=== PATIENT | female | born 1960 | race Caucasian/White ===

== ENCOUNTER → 2016-12-20 | Outpatient (CLI) | payer OTHER ==
[2014-08-26 15:00] VITALS: BP 120/82
[~2016-12-20] MED LIST: ASPI-612 PO; CHOL100013 PO; FENO48TA16 PO; GLUC100018 PO; LEVO50TA PO; LEXAPRO10 MG PO; METF100010 PO; METF500T4 PO; METO25TA4 PO; NITR0.4T22 SL; OMEG10005 PO; PANT40TA3 PO; RED600CA2 PO
--- NOTE | 2016-12-21 10:03 | RAD ---
DATE: 12/20/16. EXAM: DIGITAL SCREEN BILAT W/CAD HISTORY: Routine screening COMPARISON: 10/13/15 This study was interpreted with the benefit of Computerized Aided Detection (CAD ). TECHNIQUE: Routine digital CC and MLO views of both breasts are obtained FINDINGS: Breast Density: B No suspicious clustered microcalcifications, focal asymmetric densities or masses are seen. Stable benign calcifications seen in the left breast. Skin and nipples are intact. IMPRESSION: Benign findings BI-RADS CATEGORY:BI-RADS 1 (NEGATIVE EXAM) RECOMMENDATION: ROUTINE SCREENING MAMMOGRAPHY, PER ACR GUIDELINES. RECOMMENDED FOLLOW-UP: One year PQRS compliance statement: Patient information was entered into a reminder system with a target due date for the next mammogram. Mammography is a sensitive method for finding small breast cancers, but it does not detect them all and is not a substitute for careful clinical examination. A negative mammogram does not negate a clinically suspicious finding and should not result in delay in biopsying a clinically suspicious abnormality. "Our facility is accredited by the [employer] Mammography Program." DEXD
== END | disposition home or self-care (01) ==
LOC: MAMMO 07:59
PROVIDERS: ATTEND Family Medicine
DX: Z12.31 Encounter for screening mammogram for malignant neoplasm of breast (principal)
CPT/HCPCS: G0202; 77067

== ENCOUNTER → 2017-05-25 | Outpatient (CLI) | payer OTHER ==
[2017-05-25 14:29] LABS: ALBUMIN 4.3 g/dL (3.4-5.0); ALBUMIN/GLOBULIN RATIO 1.1 (1.0-1.7); ALK PHOS 74 U/L (46-116); ALT (SGPT) 78 U/L (14-59); ANION GAP 11 (6-14); AST (SGOT) 62 U/L (15-37); BLOOD UREA NITROGEN 16 mg/dL (7-20); BUN/CREATININE RATIO 20 (6-20); CALCIUM 9.7 mg/dL (8.5-10.1); CARBON DIOXIDE 26 mmol/L (21-32); CHLORIDE 99 mmol/L (98-107); CHOLESTEROL 177 mg/dL (0-200); CREATININE 0.8 mg/dL (0.6-1.0); GFR 73.7; GLUCOSE 146 mg/dL (70-99); HDLC 39 mg/dL (40-60); LDLC 105 mg/dL (0-100); NON-HDL CHOLESTEROL 138 mg/dL (0-129); POTASSIUM 4.3 mmol/L (3.5-5.1); SODIUM 136 mmol/L (136-145); TOTAL BILIRUBIN 0.6 mg/dL (0.2-1.0); TOTAL PROTEIN 8.3 g/dL (6.4-8.2); TRIGLYCERIDES 167 mg/dL (0-150); VLDLC 33 mg/dL (0-40)
[2017-05-25 14:32] LABS: CHOLESTEROL/HDL RATIO 4.5
[2017-05-26 00:11] LABS: CREAT RD UR 147.3 mg/dL (Not Estab.); MICRO CREAT RATIO <8.1 mg/g creat (0.0-30.0); MICROALB RD UR <12.0 ug/mL (Not Estab.)
[2017-05-26 12:12] LABS: HEMOGLOBIN A1C 7.8 % (4.8-5.6)
== END | disposition home or self-care (01) ==
LOC: LAB 13:21
DX: E11.65 Type 2 diabetes mellitus with hyperglycemia (principal); E03.9 Hypothyroidism, unspecified; E78.00 Pure hypercholesterolemia, unspecified
CPT/HCPCS: 36415; 80053; 80061; 82043; 82570; 83036; 84443

== ENCOUNTER → 2017-09-21 | Outpatient (CLI) | payer OTHER | END | disposition home or self-care (01) | LOC: EKG 16:19 | DX: Z01.818 Encounter for other preprocedural examination (principal); I10 Essential (primary) hypertension; R94.31 Abnormal electrocardiogram [ECG] [EKG] | CPT/HCPCS: 93005 ==

== ENCOUNTER → 2018-07-04 | Outpatient (CLI) | payer OTHER ==
[2014-08-26 15:00] VITALS: BP 120/82
[~2018-07-04] MED LIST changes: +METF500T16 PO; -METF500T4 PO
[2018-07-04 07:59] LABS: BASO # 0.1 x10^3/uL (0.0-0.2); BASO % 1 % (0-3); EOS # 0.2 x10^3/uL (0.0-0.7); EOS % 2 % (0-3); HEMATOCRIT 39.7 % (36.0-47.0); HEMOGLOBIN 12.8 g/dL (12.0-15.5); LYMPH # 3.2 x10^3/uL (1.0-4.8); LYMPH % 35 % (24-48); MEAN CORPUSCULAR HEMOGLOBIN 26 pg (25-35); MEAN CORPUSCULAR HGB CONC 32 g/dL (31-37); MEAN CORPUSCULAR VOLUME 79 fL (79-100); MONO # 0.8 x10^3/uL (0.0-1.1); MONO % 8 % (0-9); NEUT # 4.8 x10^3uL (1.8-7.7); NEUT % 53 % (31-73); PLATELET COUNT 294 x10^3/uL (140-400); RED BLOOD COUNT 4.99 x10^6/uL (3.50-5.40); RED CELL DISTRIBUTION WIDTH 14.2 % (11.5-14.5); WHITE BLOOD COUNT 9.1 x10^3/uL (4.0-11.0)
[2018-07-04 08:30] LABS: ALBUMIN 4.2 g/dL (3.4-5.0); CALCIUM 10.2 mg/dL (8.5-10.1); CREATININE 0.8 mg/dL (0.6-1.0); GFR 73.4; POTASSIUM 4.3 mmol/L (3.5-5.1); TOTAL BILIRUBIN 0.4 mg/dL (0.2-1.0); TOTAL PROTEIN 8.4 g/dL (6.4-8.2)
[2018-07-04 08:33] LABS: CHOLESTEROL/HDL RATIO 3.6
[2018-07-04 11:27] LABS: CREAT RD UR 40.9 mg/dL (Not Estab.); MICRO CREAT RATIO <7.3 mg/g creat (0.0-30.0); MICROALB RD UR <3.0 ug/mL (Not Estab.)
[2018-07-04 23:11] LABS: HEMOGLOBIN A1C 6.9 % (4.8-5.6)
== END | disposition home or self-care (01) ==
LOC: LAB 07:25
PROVIDERS: ATTEND Family Medicine
DX: I10 Essential (primary) hypertension (principal); E11.65 Type 2 diabetes mellitus with hyperglycemia; E03.9 Hypothyroidism, unspecified; E78.00 Pure hypercholesterolemia, unspecified
CPT/HCPCS: 36415; 80053; 80061; 82043; 82570; 83036; 84443; 85025

== ENCOUNTER → 2019-01-30 | Outpatient (CLI) | payer OTHER ==
[2014-08-26 15:00] VITALS: BP 120/82
[~2019-01-30] MED LIST changes: -PANT40TA3 PO; +PANT40TA77 PO
--- NOTE | 2019-02-03 11:24 | RAD ---
MR#: [id number] Date of Study: 01/30/2019 Ordering Physician: ALEXANDRIA ECHEVARRIA, Referring Physician: ALEXANDRIA ECHEVARRIA, Tech: ISIS Antunez, RDMS, RVT APPROVED REPORT Patient Location : OUT-PATIENT Indications Lower Extremity Pain : SPIDER VEINS, HX OF LEFT GSV TX PER PATIENT Risk Factors [place] scale images of the SFJ, GSV and LSV do not show any obvious evidence of thrombus. On spectral images, there is reflux localized only to the level of the SFJ and into the right AASV. T here is no clear evidence of reflux in the GSV or LSV bilaterally. There are perforators noted in bot h calves without any evidence of reflux. There are multiple spider veins noted on the superficial opal face of the skin per technologist report. Past History Compression Stockings : YesDiabetes Medications Aspirin Critical Notification Critical Value: No <Conclusion> 1. 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 Although clinically it appe ars that there is chronic LE reflux. Signed by : Alexandria Echevarria, Electronically Approved : 01/31/2019 08:38:36
== END | disposition home or self-care (01) ==
LOC: KCIC US 13:09
PROVIDERS: ATTEND Internal Medicine Cardiovascular Disease
DX: I87.2 Venous insufficiency (chronic) (peripheral) (principal); E11.9 Type 2 diabetes mellitus without complications
CPT/HCPCS: 93970

== ENCOUNTER → 2019-06-24 | Outpatient (CLI) | payer OTHER ==
[2014-08-26 15:00] VITALS: BP 120/82
[2019-06-24 12:06] LABS: BASO % 1 % (0-3); EOS # 0.2 x10^3/uL (0.0-0.7); EOS % 2 % (0-3); HEMATOCRIT 41.6 % (36.0-47.0); HEMOGLOBIN 13.8 g/dL (12.0-15.5); LYMPH % 26 % (24-48); MEAN CORPUSCULAR HEMOGLOBIN 27 pg (25-35); MEAN CORPUSCULAR HGB CONC 33 g/dL (31-37); MEAN CORPUSCULAR VOLUME 81 fL (79-100); MONO # 0.6 x10^3/uL (0.0-1.1); MONO % 8 % (0-9); NEUT # 4.9 x10^3/uL (1.8-7.7); NEUT % 63 % (31-73); PLATELET COUNT 324 x10^3/uL (140-400); RED BLOOD COUNT 5.13 x10^6/uL (3.50-5.40); RED CELL DISTRIBUTION WIDTH 14.9 % (11.5-14.5); WHITE BLOOD COUNT 7.8 x10^3/uL (4.0-11.0)
[2019-06-24 12:21] LABS: ALBUMIN 4.2 g/dL (3.4-5.0); CALCIUM 9.9 mg/dL (8.5-10.1); CREATININE 0.8 mg/dL (0.6-1.0); GFR 73.2; POTASSIUM 4.8 mmol/L (3.5-5.1); TOTAL BILIRUBIN 0.4 mg/dL (0.2-1.0); TOTAL PROTEIN 8.6 g/dL (6.4-8.2)
[2019-06-24 12:23] LABS: CHOLESTEROL/HDL RATIO 3.5
[2019-06-24 12:29] LABS: FREE T4 0.7 ng/dL (0.76-1.46); THYROID STIM HORMONE (TSH) 1.507 uIU/mL (0.358-3.74)
[2019-06-24 21:07] LABS: MICROALB RD UR 4.3 ug/mL (Not Estab.)
[2019-06-25 00:07] LABS: HEMOGLOBIN A1C 6.4 % (4.8-5.6)
== END | disposition home or self-care (01) ==
LOC: LAB 11:31
PROVIDERS: ATTEND Family Medicine
DX: E11.65 Type 2 diabetes mellitus with hyperglycemia (principal); E03.9 Hypothyroidism, unspecified; E78.00 Pure hypercholesterolemia, unspecified
CPT/HCPCS: 36415; 80053; 80061; 82043; 82570; 83036; 84439; 84443; 85025

== ENCOUNTER → 2019-09-01 | Outpatient (CLI) | payer OTHER ==
[2014-08-26 15:00] VITALS: BP 120/82
[~2019-09-01] MED LIST changes: +REGADENOSON 0.4 MG/5 ML DISP.SYRIN. IV ONE
--- NOTE | 2019-09-01 11:59 | RAD ---
MR#: [id number] Date of Study: 09/01/2019 Ordering Physician: ALEXANDRIA ECHEVARRIA, Referring Physician: MICHOACANO EWING Tech: RT Katharine Drummond) (N) APPROVED REPORT Test Type: Pharmacological Stress Nurse/Tech: RT Bhanu (Radha) (N) Test Indications: coronary artery disease Cardiac History: stent 2005 Medications: see EHR Medical History: hypertension, diabetic Resting ECG: sinus rhythm Resting Heart Rate: 68 bpm Resting Blood Pressure: 130/71mmHg Pretest Chest Pain: None Nurse/Tech Notes Consent: The procedure was explained to the patient in lay terms. Informed consent was witnessed. Joshua eout was entered into [employer]. History and Stress Test performed by RT Katharine Drummond) (N) Pharm. Details Pharmacologic stress testing was performed using 0.4mg per 5ml of regadenoson given intravenously ove r 7-10 seconds. POST EXERCISE Reason for Termination: Infusion complete Max HR: 94 bpm Max Blood Pressure: 150/83mmHg INTERPRETATION Stress EKG Conclusion: The resting EKG showed a sinus rhythm with mild nonspecific ST-T wave changes. The stress EKG showed no significant changes from baseline. No EKG evidence of stress-induced ischemia. Imaging Protocol IMAGE PROTOCOL: Rest Tc-99m/stress Tc-99m 1 day Rest: Stress: Viability: Radiopharm.Tc99m DnzibcojpIh93a Sestamibi Nprs08eDe 32.6mCi Duration 15min. 10min. Img Date 09/01/2019 09/01/2019 Inj-Img [id number]. 60min. Rest Admin Site:IV - Right AntecubitalAdministrator:RT Katharine Drummond)(N) Stress Admin Site: IV - Right AntecubitalAdministrator: RT Katharine Drummond)(N) STRESS DATA End Diast. Vol.98.0mlAv. Heart Rate77.0bpm End Syst. Vol.13.0mlCO Index BSA6.5L/min Myocardial Aexn721.0gEject. Nmplmijp54.0% Stress Rates Pk. Fill Rate3.04EDV/secLVtime Pk. Fill 198.86msec Pk. Empty Rate3.64ESV/secLVtime Pk. Qqqyw079.59msec 1/3 Pk. Fill1.18EDV/sec Stress Scores Regional WT0.00Summed WT0.00 Regional WM0.00Summed WM0.00 LV Perfusion The stress scans showed slight apical thinning. The rest scans showed no significant defects. No diagnostic findings of reversible ischemia or infarct. Slight apical thinning on the stress scans . Wall Motion Left ventricular systolic function is normal with no regional wall motion abnormalities and an ejecti on fraction of greater than 70%. LV Perf. Quant 17 Seg. SSS0.00 17 Seg. SRS2.00 17 Seg. SDS0.00 Stress Defect Extent (% LAD)0.00Rest Defect Extent (% LAD)0.00Rev. Defect Extent (% LAD)0.00 Stress Defect Extent (% LCX) 0.00Rest Defect Extent (% LCX)8.80Rev. Defect Extent (% LCX)0.00 Stress Defect Extent (% RCA)0.00Rest Defect Extent (% RCA)0.00Rev. Defect Extent (% RCA)0.00 Stress Defect Extent (% GANESH)0.00Rest Defect Extent (% GANESH)1.50Rev. Defect Extent (% GANESH)0.00 Conclusion 1. No EKG evidence of stress-induced ischemia. 2. Nuclear imaging shows no diagnostic reversible ischemia or infarct. Slight apical thinning on str ess scans. 3. Normal left ventricular systolic function with an ejection fraction of greater than 70%. 4. Moderately low risk nuclear stress test. Signed by : Scottie Cooney MD Electronically Approved : 09/01/2019 11:59:10
== END | disposition home or self-care (01) ==
LOC: NM 07:25
PROVIDERS: ATTEND Internal Medicine Cardiovascular Disease
DX: I25.10 Atherosclerotic heart disease of native coronary artery without angina pectoris (principal); I10 Essential (primary) hypertension; E11.9 Type 2 diabetes mellitus without complications; Z95.5 Presence of coronary angioplasty implant and graft
CPT/HCPCS: 78452; 93017; A9500; J2785

== ENCOUNTER → 2019-12-30 | Outpatient (CLI) | payer OTHER ==
[2014-08-26 15:00] VITALS: BP 120/82
[~2019-12-30] MED LIST changes: -ASPI-612 PO; +ASPI-886 PO; -REGADENOSON 0.4 MG/5 ML DISP.SYRIN. IV ONE
--- NOTE | 2019-12-30 13:07 | RAD ---
DATE: 12/30/2019 8:10 AM EXAM: MAMMO TRAVIS SCREENING BILATERAL HISTORY: Screening COMPARISON: 09/17/2018, 12/20/2016 Bilateral CC and MLO views of the breasts were performed. Bilateral breast tomosynthesis was performed in CC and MLO projections. This study was interpreted with the benefit of Computerized Aided Detection (CAD). FINDINGS: Breast Density: HETERO The breast parenchyma Is heterogeneously dense, which could reduce sensitivity of mammography. Breast parenchyma level C Negative left mammogram. Right mammogram shows a focal asymmetry in the superior middle third right breast that needs additional imaging with spot compression views in the CC, MLO views along with a full-field lateral view, preferably with 3-D technique. Targeted ultrasound may also be helpful. IMPRESSION: Right breast focal asymmetry, findings for which additional imaging is advised. BI-RADS CATEGORY: 0 INCOMPLETE: NEEDS ADDITIONAL IMAGING EVALUATION AND/OR PRIOR MAMMOGRAMS FOR COMPARISON. RECOMMENDED FOLLOW-UP: ADD ADDITIONAL IMAGING The patient will be contacted to return for additional imaging and a supplemental report will follow. PQRS compliance statement: Patient information was entered into a reminder system with a target due date for the next mammogram. Mammography is a sensitive method for finding small breast cancers, but it does not detect them all and is not a substitute for careful clinical examination. A negative mammogram does not negate a clinically suspicious finding and should not result in delay in biopsying a clinically suspicious abnormality. "Our facility is accredited by the [employer] Mammography Program."
== END | disposition home or self-care (01) ==
LOC: MAMMO 08:04
PROVIDERS: ATTEND Family Medicine
DX: Z12.31 Encounter for screening mammogram for malignant neoplasm of breast (principal)
CPT/HCPCS: 77063; 77067

== ENCOUNTER → 2020-01-01 | Outpatient (CLI) | payer OTHER ==
[2014-08-26 15:00] VITALS: BP 120/82
--- NOTE | 2020-01-02 12:44 | RAD ---
DATE: 01/01/2020 8:08 AM EXAM: MAMMO TRAVIS SHELLG RT, BREAST RIGHT HISTORY: Screening recall for focal asymmetry in the superior central right breast. COMPARISON: Screening mammograms of 12/30/2019, 09/17/2018 TECHNIQUE: Spot compression views of the right breast in the CC and MLO projections were obtained in addition to a full-field right ML view with 2-D and 3-D technique This study was interpreted with the benefit of Computerized Aided Detection (CAD). Targeted ultrasound of the superior right breast was also pursued. FINDINGS: Breast Density: HETERO The breast parenchyma Is heterogeneously dense, which could reduce sensitivity of mammography. Breast parenchyma level C Additional views of the right breast showed a change in configuration of the questioned asymmetry in a pattern consistent with benign overlap of fibroglandular tissue. No definite persistent mammographic abnormality was seen. However, given the density of the breast tissue, ultrasound was also pursued at this visit. Targeted ultrasound of the right breast in the area of mammographic interest revealed no suspicious sonographic findings, correlating with the mammographic appearance. IMPRESSION: No mammographic evidence of malignancy. BI-RADS CATEGORY: 1 NEGATIVE RECOMMENDED FOLLOW-UP: 12M 12 MONTH FOLLOW-UP Annual screening mammography is recommended, unless clinically indicated sooner based on symptoms or change in physical exam. PQRS compliance statement: Patient information was entered into a reminder system with a target due date for the next mammogram. Mammography is a sensitive method for finding small breast cancers, but it does not detect them all and is not a substitute for careful clinical examination. A negative mammogram does not negate a clinically suspicious finding and should not result in delay in biopsying a clinically suspicious abnormality. "Our facility is accredited by the [employer] Mammography [employer]."
== END | disposition home or self-care (01) ==
LOC: MAMMO 08:00
PROVIDERS: ATTEND Family Medicine
DX: R92.2 Inconclusive mammogram (principal)
CPT/HCPCS: 76641; 77065; G0279; 77061

== ENCOUNTER → 2020-06-23 | Outpatient (CLI) | payer OTHER ==
[2014-08-26 15:00] VITALS: BP 120/82
[~2020-06-23] MED LIST changes: +GLIM4TAB8 PO; +MONT10TA49 PO; +OLME5TAB4 PO; +PARO20TA3 PO; +SITA100T PO; +THYR60TA PO
== END ==
LOC: LAB 06-22 11:59
PROVIDERS: ATTEND Ophthalmology
DX: Z01.812 Encounter for preprocedural laboratory examination (principal); Z20.822 Contact with and (suspected) exposure to COVID-19
CPT/HCPCS: U0003

== ENCOUNTER 2020-06-25 09:55 | Day surgery (SDC) | payer OTHER ==
[~2020-06-25] VITALS: Ht 177.8 cm; Wt 90.7 kg
[~2020-06-25 09:55] MED LIST changes: +CIPROFLOXACIN 0.3% OPHTH SOLUTION 5ML BOTTLE. OD ONE; +IV RINGERS,LACTATED 1000ML 1,000 ML IV SCH; +LIDOCAINE 2% JELLY 6ML IN APPLICATOR. OD ONE; +PROPARACAINE 0.5% OPHTH SOLUTION 15ML BOTTLE. OD ONE
[2020-06-25] MEDS ORDERED: INSULIN LISPRO 100 UNIT/ML 3ML VIAL for OP,RR ONLY. SQ PRN (10:15)
[2020-06-25] MEDS: CYCLOPENTOLATE 2% OPHTH SOLUTION 2ML BOTTLE. OD SCH ×3 (10:30→10:42)
[2020-06-25] MEDS: PHENYLEPHRINE 10% OPHTH SOLUTION 5ML BOTTLE. OD SCH ×3 (10:30→10:42)
--- NOTE | 2020-06-25 11:22 | NUR ---
NO SLIDING SCALE INSULIN PER DR HEREDIA
[2020-06-25] MEDS ORDERED: MIDAZOLAM HCL/PF 2 MG/2 ML VIAL. ONE (11:59)
[2020-06-25] MEDS ORDERED: CHONDROITIN-SOD-HYALURONATE 0.5 ML DISP.SYRIN. ONE (12:02)
[2020-06-25] MEDS ORDERED: LIDOCAINE 1%/PHENYLEPH 1.5% PF OPHTH 1 ML VIAL. ONE (12:02)
[2020-06-25] MEDS ORDERED: CHONDROIT-SOD-HYALURONATE KIT. ONE (12:02)
[2020-06-25] MEDS ORDERED: NEO/POLYMYX/DEXAMETH OPHTH OINTMENT 3.5GM TUBE. ONE (12:02)
--- NOTE | 2020-06-25 12:44 | OP ---
DATE OF SURGERY: 06/25/2020 PREOPERATIVE DIAGNOSIS: Cataract of the right eye. PROCEDURE: Phacoemulsification with posterior chamber intraocular lens implantation of the right eye. INDICATION: Painless progressive visual loss and visually significant cataract, difficulty reading and driving. SURGEON: Urvashi Estrada MD ANESTHESIA: Topical with monitored anesthesia care. DESCRIPTION OF PROCEDURE: The right eye was prepped with Betadine in the usual sterile fashion and draped. A paracentesis was performed followed by instillation of preservative-free phenylephrine admixed with lidocaine and balanced salt solution. A temporal clear corneal incision was made followed by instillation of Viscoat. A capsulorrhexis was performed followed by hydrodissection. The phacoemulsification handpiece was used to remove the nucleus in a modified stop and chop fashion. The I/A handpiece was used to remove the cortex. Viscoelastic was injected in the capsular bag and an Dante model [id number] with a power of 18.5 diopters was placed into the capsular bag. Balanced salt solution was used to hydrate the corneal wounds and once no leak was noted, Maxitrol was placed on the eye and the eye shielded, and the patient was sent to the recovery room uneventfully. Due to the patient's work schedule, she preferred to follow up 1 week later and we advised her to continue the drops as the calendar and instructions that were given to her, and call for any questions or concerns. URVASHI ESTRADA MD DR: JONH/dhaval JOB#: [id number] / [id number]
[2020-06-25 12:45] VITALS: BP 129/66
== END 2020-06-25 13:00 | disposition home or self-care (01) ==
LOC: SURG 09:55
PROVIDERS: ATTEND Ophthalmology
DX: E11.36 Type 2 diabetes mellitus with diabetic cataract (principal); H25.89 Other age-related cataract; K21.9 Gastro-esophageal reflux disease without esophagitis; F41.9 Anxiety disorder, unspecified; Z90.49 Acquired absence of other specified parts of digestive tract; Z90.710 Acquired absence of both cervix and uterus; Z98.890 Other specified postprocedural states; Z79.82 Long term (current) use of aspirin; Z79.84 Long term (current) use of oral hypoglycemic drugs; Z79.899 Other long term (current) drug therapy; Z72.89 Other problems related to lifestyle; Z91.040 Latex allergy status; Z88.5 Allergy status to narcotic agent; Z88.8 Allergy status to other drugs, medicaments and biological substances
CPT/HCPCS: 66984; 82962; J0171; J0690; J1580; J2250; J3490; V2632

== ENCOUNTER → 2020-07-14 | Outpatient (CLI) | payer OTHER ==
[2020-06-25 12:45] VITALS: BP 129/66
[~2020-07-14] MED LIST changes: -CIPROFLOXACIN 0.3% OPHTH SOLUTION 5ML BOTTLE. OD ONE; -IV RINGERS,LACTATED 1000ML 1,000 ML IV SCH; -LIDOCAINE 2% JELLY 6ML IN APPLICATOR. OD ONE; -PROPARACAINE 0.5% OPHTH SOLUTION 15ML BOTTLE. OD ONE
== END ==
LOC: LAB 07:11
PROVIDERS: ATTEND Ophthalmology
DX: Z01.812 Encounter for preprocedural laboratory examination (principal); Z20.822 Contact with and (suspected) exposure to COVID-19
CPT/HCPCS: U0003

== ENCOUNTER 2020-07-16 10:08 | Day surgery (SDC) | payer OTHER ==
[~2020-07-16] VITALS: Ht 177.8 cm; Wt 90.7 kg
[~2020-07-16 10:08] MED LIST changes: +CHONDROIT-SOD-HYALURONATE KIT. ONE; +CHONDROITIN-SOD-HYALURONATE 0.5 ML DISP.SYRIN. ONE; +CIPROFLOXACIN 0.3% OPHTH SOLUTION 5ML BOTTLE. OS ONE; +HYDROmorphone 2 MG/ML VIAL IVP PRN; +IV RINGERS,LACTATED 1000ML 1,000 ML IV SCH; +LIDOCAINE 1%/PHENYLEPH 1.5% PF OPHTH 1 ML VIAL. ONE; +LIDOCAINE 2% JELLY 6ML IN APPLICATOR. OS ONE; +MORPHINE SULFATE 2 MG/ML VIAL. IVP PRN; +NEO/POLYMYX/DEXAMETH OPHTH OINTMENT 3.5GM TUBE. ONE; +PROCHLORPERAZINE 10 MG/2 ML VIAL. IVP PRN; +PROPARACAINE 0.5% OPHTH SOLUTION 15ML BOTTLE. OS ONE; +fentaNYL PF VIAL 100 MCG/2 ML VIAL IVP PRN
[2020-07-16] MEDS: CYCLOPENTOLATE 2% OPHTH SOLUTION 2ML BOTTLE. OS SCH ×3 (10:58→11:10)
[2020-07-16] MEDS: PHENYLEPHRINE 10% OPHTH SOLUTION 5ML BOTTLE. OS SCH ×3 (10:59→11:10)
[2020-07-16] MEDS ORDERED: INSULIN LISPRO 100 UNIT/ML 3ML VIAL for OP,RR ONLY. SQ PRN (11:00)
[2020-07-16] MEDS ORDERED: INSULIN LISPRO 100 UNIT/ML 3ML VIAL for OP,RR ONLY. SQ ONE (11:00)
[2020-07-16] MEDS ORDERED: MIDAZOLAM HCL/PF 2 MG/2 ML VIAL. ONE (11:44)
[2020-07-16] MEDS ORDERED: LIDOCAINE 2% JELLY 6ML IN APPLICATOR. ONE (11:45)
--- NOTE | 2020-07-16 12:27 | OP ---
DATE OF SURGERY: 07/16/2020 PREOPERATIVE DIAGNOSIS: Cataract of the left eye. PROCEDURE: Phacoemulsification with posterior chamber intraocular lens implantation of the left eye. INDICATION: Painless progressive visual loss and visually significant cataract and difficulty reading and driving. SURGEON: Urvashi Estrada MD ANESTHESIA: Topical with monitored anesthesia care. DESCRIPTION OF PROCEDURE: The left eye was prepped with Betadine in the usual sterile fashion and draped. A paracentesis was performed followed by instillation of preservative-free phenylephrine admixed with lidocaine and balanced salt solution. A temporal clear corneal incision was made followed by instillation of Viscoat. A capsulorrhexis was performed followed by hydrodissection. The phacoemulsification handpiece was used to remove the nucleus in a modified stop and chop fashion. The I/A handpiece was used to remove the cortex. Viscoelastic was injected in the capsular bag and an Dante, model SN60WF with a power of 18.5 diopters was placed into the capsular bag. Balanced salt solution was used to hydrate the corneal wounds and the viscoelastic evacuated with the I/A handpiece. Once no leak was noted, Maxitrol was placed on the eye and the eye shielded and the patient was sent to the recovery room uneventfully. URVASHI ESTRADA MD DR: JONH/nts JOB#: [id number] / [id number]
[2020-07-16 12:30] VITALS: BP 160/67
== END 2020-07-16 12:35 | disposition home or self-care (01) ==
LOC: SURG 10:08
PROVIDERS: ATTEND Ophthalmology
DX: E11.36 Type 2 diabetes mellitus with diabetic cataract (principal); H25.89 Other age-related cataract; I25.10 Atherosclerotic heart disease of native coronary artery without angina pectoris; K21.9 Gastro-esophageal reflux disease without esophagitis; F41.9 Anxiety disorder, unspecified; Z90.49 Acquired absence of other specified parts of digestive tract; Z90.710 Acquired absence of both cervix and uterus; Z98.890 Other specified postprocedural states; Z79.899 Other long term (current) drug therapy; Z72.89 Other problems related to lifestyle; Z87.891 Personal history of nicotine dependence; Z79.82 Long term (current) use of aspirin; Z91.040 Latex allergy status; Z88.5 Allergy status to narcotic agent; Z88.8 Allergy status to other drugs, medicaments and biological substances
CPT/HCPCS: 66984; 82962; C1780; J0171; J0690; J1580; J1815; J2250; J3490

== ENCOUNTER → 2020-08-02 | Outpatient (CLI) | payer OTHER ==
[2020-07-16 12:30] VITALS: BP 160/67
[~2020-08-02] MED LIST changes: -CHONDROIT-SOD-HYALURONATE KIT. ONE; -CHONDROITIN-SOD-HYALURONATE 0.5 ML DISP.SYRIN. ONE; -CIPROFLOXACIN 0.3% OPHTH SOLUTION 5ML BOTTLE. OS ONE; -HYDROmorphone 2 MG/ML VIAL IVP PRN; -IV RINGERS,LACTATED 1000ML 1,000 ML IV SCH; -LIDOCAINE 1%/PHENYLEPH 1.5% PF OPHTH 1 ML VIAL. ONE; -LIDOCAINE 2% JELLY 6ML IN APPLICATOR. OS ONE; -MORPHINE SULFATE 2 MG/ML VIAL. IVP PRN; -NEO/POLYMYX/DEXAMETH OPHTH OINTMENT 3.5GM TUBE. ONE; -PROCHLORPERAZINE 10 MG/2 ML VIAL. IVP PRN; -PROPARACAINE 0.5% OPHTH SOLUTION 15ML BOTTLE. OS ONE; -fentaNYL PF VIAL 100 MCG/2 ML VIAL IVP PRN
[2020-08-02 07:57] LABS: BASO % 1 % (0-3); EOS # 0.2 x10^3/uL (0.0-0.7); EOS % 2 % (0-3); HEMATOCRIT 40.7 % (36.0-47.0); HEMOGLOBIN 13.8 g/dL (12.0-15.5); LYMPH # 2.5 x10^3/uL (1.0-4.8); LYMPH % 29 % (24-48); MEAN CORPUSCULAR HEMOGLOBIN 27 pg (25-35); MEAN CORPUSCULAR HGB CONC 34 g/dL (31-37); MEAN CORPUSCULAR VOLUME 80 fL (79-100); MONO # 0.7 x10^3/uL (0.0-1.1); MONO % 8 % (0-9); NEUT # 5.3 x10^3/uL (1.8-7.7); NEUT % 61 % (31-73); PLATELET COUNT 277 x10^3/uL (140-400); RED BLOOD COUNT 5.06 x10^6/uL (3.50-5.40); RED CELL DISTRIBUTION WIDTH 14.1 % (11.5-14.5); WHITE BLOOD COUNT 8.7 x10^3/uL (4.0-11.0)
[2020-08-02 09:49] LABS: ALBUMIN 4.2 g/dL (3.4-5.0); CALCIUM 10.1 mg/dL (8.5-10.1); CREATININE 0.8 mg/dL (0.6-1.0); GFR 72.9; POTASSIUM 4.5 mmol/L (3.5-5.1); TOTAL BILIRUBIN 0.6 mg/dL (0.2-1.0); TOTAL PROTEIN 8.4 g/dL (6.4-8.2)
[2020-08-02 09:52] LABS: CHOLESTEROL/HDL RATIO 3.1
[2020-08-02 09:58] LABS: FREE T4 0.69 ng/dL (0.76-1.46); THYROID STIM HORMONE (TSH) 0.564 uIU/mL (0.358-3.74)
[2020-08-02 12:10] LABS: CREAT RD UR 69.3 mg/dL (Not Estab.); MICROALB RD UR 3.7 ug/mL (Not Estab.)
== END ==
LOC: LAB 07:28
PROVIDERS: ATTEND Family Medicine
DX: E11.65 Type 2 diabetes mellitus with hyperglycemia (principal); E03.9 Hypothyroidism, unspecified; Z86.39 Personal history of other endocrine, nutritional and metabolic disease
CPT/HCPCS: 80053; 80061; 82043; 82306; 82570; 83036; 84439; 84443; 85025

== ENCOUNTER → 2021-04-30 | Outpatient (CLI) | payer OTHER | LOC: LAB 17:58 | PROVIDERS: ATTEND Internal Medicine Pulmonary Disease | DX: U07.1 COVID-19 (principal) | CPT/HCPCS: U0003; U0005 ==

== ENCOUNTER → 2021-05-25 | Outpatient (CLI) | payer OTHER ==
--- NOTE | 2021-05-25 10:53 | RAD ---
DATE: 05/25/2021 EXAM: MG BILAT SCREEN+TRAVIS HISTORY: Screening family history of mother with breast cancer at age of 75. COMPARISON: 12/30/2019, This study was interpreted with the benefit of Computerized Aided Detection (CAD). Breast Density: HETERO The breast parenchyma is heterogenously dense, which could reduce sensitivity of mammography. Breast parenchyma level C. FINDINGS: No suspicious mass, suspicious calcification, or architectural distortion. IMPRESSION: No evidence of malignancy. BI-RADS CATEGORY: 1 NEGATIVE RECOMMENDED FOLLOW-UP: 12M 12 MONTH FOLLOW-UP PQRS compliance statement: Patient information was entered into a reminder system with a target due d ate for the next mammogram. Mammography is a sensitive method for finding small breast cancers, but it does not detect them all a nd is not a substitute for careful clinical examination. A negative mammogram does not negate a clin ically suspicious finding and should not result in delay in biopsying a clinically suspicious abnorma lity. "Our facility is accredited by the [employer] Mammography Program." Electronically signed by: Beena Rosen MD (05/25/2021 10:51 AM) [id number]
== END ==
LOC: MAMMO 07:55
PROVIDERS: ATTEND Family Medicine
DX: Z12.31 Encounter for screening mammogram for malignant neoplasm of breast (principal)
CPT/HCPCS: 77063; 77067